=== PATIENT | female | born 1955 | race Caucasian/White ===

== ENCOUNTER → 2016-09-11 | Outpatient (CLI) | payer BC ==
[2016-09-11 11:13] LABS: BASOPHILS # (AUTO) 0.04 10*3/UL; BASOPHILS % (AUTO) 0.6 % (0-1); EOSINOPHILS % (AUTO) 3.3 % (0-8); HEMATOCRIT 39.7 % (37.0-47.0); IMM GRAN % (AUTO) 0.6 % (0-5); IMM GRAN# (AUTO) 0.04 10*3/UL; LYMPHOCYTES # (AUTO) 2.38 10*3/uL; MEAN CORPUSCULAR HGB CONC 32.7 g/dL (33-37); MEAN PLATELET VOLUME 11.5 FL (7.4-12.2); MONOCYTES # (AUTO) 0.49 10*3/UL (0.3-0.8); NEUTROPHILS # (AUTO) 3.82 10*3/UL; NEUTROPHILS % (AUTO) 54.5 % (50-80); RDW COEFFICIENT OF VARIATION 14.4 % (11.5-14.5)
[2016-09-11 11:19] LABS: PLATELET MORPHOLOGY COMMENT NORMAL MORPHOLOGY (NORM)
[2016-09-11 11:20] LABS: BILIRUBIN,TOTAL 0.7 mg/dL (0.3-1.2); BUN/CREATININE RATIO 18.82 (6-20); CALCIUM 10.8 mg/dL (8.7-10.7); CREATININE 1.7 mg/dL (0.50-1.20); POTASSIUM 4.1 meq/L (3.8-5.2); TOTAL PROTEIN 7.4 g/dL (6.1-8.0)
[2016-09-11 11:28] LABS: PROTHROMBIN TIME 10.4 secs (9.7-11.4)
[2016-09-11 13:17] LABS: FREE T4 (FREE THYROXINE) 1.94 ng/dL (0.93-1.71)
== END ==
LOC: MOB LAB 09:09
PROVIDERS: ATTEND Physician Assistant Medical
DX: N93.9 Abnormal uterine and vaginal bleeding, unspecified (principal); E03.9 Hypothyroidism, unspecified
CPT/HCPCS: 36415; 80053; 84439; 84443; 85025; 85610; 85730

== ENCOUNTER → 2016-09-18 | Outpatient (CLI) | payer BC ==
--- NOTE | 2016-09-18 15:20 | EKG ---
[address] [place] [place] [address] Measurements Intervals [place] Rate: 46 P: 74 NM: 195 QRS: 82 QRSD: 104 T: -16 QT: 386 QTc: 346 Interpretive Statements SINUS BRADYCARDIA LEFT VENTRICULAR HYPERTROPHY AND ST-T CHANGE [VOLTAGE CRITERIA PLUS ST/T ABNORMALITY] POSSIBLE INFERIOR MYOCARDIAL INFARCTION PROBABLY OLD No previous ECG available for comparison Electronically Signed On 09-18-16 17:54:56 MST by Nik Rosenthal [email or web address]
== END ==
LOC: EKG 15:09
PROVIDERS: ATTEND Specialist
DX: R94.31 Abnormal electrocardiogram [ECG] [EKG] (principal); I50.41 Acute combined systolic (congestive) and diastolic (congestive) heart failure; R00.1 Bradycardia, unspecified; I51.7 Cardiomegaly
CPT/HCPCS: 93005; 93010

== ENCOUNTER 2016-09-26 09:23 | Day surgery (SDC) | payer BC ==
[~2016-09-26 09:23] MED LIST: LIDOCAINE W/ SODIUM BICARB 0.5 ML SYR ONE; Lactated Ringers 1,000 ML PRIMARY IV ONE
--- NOTE | 2016-09-26 11:32 | GEN.OPNOTE ---
Colonoscopy Procedure Note Surgery Date: 09/26/16 Preoperative Diagnosis: Colon cancer surveillance Postoperative Diagnosis: Screening for colon cancer. Diverticulosis Procedure: Colonoscopy Surgeon: Serg Vega MD Anesthesia Provider: Cori Kapadia CRNA Anesthesia Type: MAC Indications: Patient has a history of ovarian cancer. She needs screening for colon cancer Findings: Prep : Very good Cecum : Olympus scope was advanced to the cecum. Ileocecal valve identified. Could not cannulate the ileocecal valve low. Patient normal-appearing cecum Ascending : Ascending colon was free from disease Transverse : Transverse colon was free from disease Sigmoid : Descending and sigmoid colon had diverticulosis. Rectum : Rectum free from disease Digital Rectal Exam : No rectal masses palpated patient is oriented perianal skin I believe from the bowel prep A lubricated flexible colonoscope was inserted and passed to the blind end of the cecum.
[2016-09-26 13:06] VITALS: RESP 14
[2016-09-26 13:09] VITALS: TEMP 97.2
== END 2016-09-26 12:06 | disposition home or self-care (01) ==
LOC: SDSC 09:23
PROVIDERS: ATTEND Surgery
DX: Z12.11 Encounter for screening for malignant neoplasm of colon (principal); K57.90 Diverticulosis of intestine, part unspecified, without perforation or abscess without bleeding; K59.09 Other constipation
CPT/HCPCS: 45378; J2704; J7120

== ENCOUNTER → 2016-10-01 | Outpatient (CLI) | payer BC | LOC: LAB 14:15 | PROVIDERS: ATTEND Internal Medicine Hematology & Oncology | DX: Z00.00 Encounter for general adult medical examination without abnormal findings (principal) | CPT/HCPCS: 36415 ==

== ENCOUNTER → 2016-10-17 | Outpatient (CLI) | payer BC | LOC: LAB 13:21 | PROVIDERS: ATTEND Internal Medicine Hematology & Oncology | DX: Z00.00 Encounter for general adult medical examination without abnormal findings (principal) ==